=== PATIENT | male | born 1970 | race Two or more races ===

== ENCOUNTER → 2021-03-31 | Outpatient (CLI) | payer MEDICARE, MEDICAID | END | disposition home or self-care (01) | LOC: LAB 08:47 | PROVIDERS: ATTEND Nurse Practitioner Family | DX: Z20.822 Contact with and (suspected) exposure to COVID-19 (principal) | CPT/HCPCS: C9803; U0003 ==

== ENCOUNTER 2023-10-09 17:07 | Emergency (ER) | payer MEDICAID, MEDICARE ==
[~2023-10-09] VITALS: Ht 170.2 cm; Wt 83.0 kg
[2023-10-09 17:29] VITALS: BP 123/88; PULSE 87; RESP 20; O2SAT 99
[2023-10-09 17:52] LABS: Urine Bacteria None Seen /hpf (None Seen)
[2023-10-09 18:26] LABS: Urine Blood 1+ /uL (Negative); Urine Clarity Clear (Clear); Urine Color Light-Yellow (Yellow); Urine Protein, UAD 1+ (Negative); Urine Urobilinogen Normal (Negative); Urine WBC 1 /hpf (0 - 3); Urine pH 6.5 (5.0-9.0)
== END 2023-10-10 03:27 | disposition home or self-care (01) ==
LOC: ER 17:07
DX: R33.9 Retention of urine, unspecified (principal); N18.6 End stage renal disease; Z99.2 Dependence on renal dialysis; Z88.6 Allergy status to analgesic agent
CPT/HCPCS: 51702; 81001